=== PATIENT | male | born 1980 | race Caucasian/White ===

== ENCOUNTER 2017-06-28 09:13 | Inpatient (IN) | payer OTHER ==
[2017-06-28] MEDS ORDERED: CA CHLORIDE 10% 10 ML SYRINGE (11:17)
[2017-06-28] MEDS ORDERED: AL HYDROX/MG HYDROX/SIMETH 30 ML CUP PO (12:30)
[2017-06-28] MEDS ORDERED: DIPHENHYDRAMINE 50 MG INJ IV (12:30)
[2017-06-28] MEDS ORDERED: ZOLPIDEM 5 MG TAB PO (12:30)
[2017-06-28] MEDS ORDERED: ONDANSETRON 4 MG INJ IV (12:30)
[2017-06-28] MEDS ORDERED: NALOXONE (0.4 MG/ML) INJ IV (12:30)
[2017-06-28] MEDS ORDERED: BISACODYL 10 MG SUPP PR (12:30)
[2017-06-28] MEDS ORDERED: PROPOFOL 20 ML (12:56)
[2017-06-28] MEDS ORDERED: ROCURONIUM 50 MG INJ ×2 (12:56→13:46)
[2017-06-28] MEDS ORDERED: GLYCOPYRROLATE 0.4 MG INJ ×3 (12:56→13:47)
[2017-06-28] MEDS ORDERED: SUCCINYLCHOLINE CHLORIDE 100 MG/5 ML SYG IV (12:56)
[2017-06-28] MEDS ORDERED: LIDOCAINE 2% (SDV) 5 ML INJ (12:56)
[2017-06-28] MEDS ORDERED: NEOSTIGMINE 3 MG/3 ML SYRINGE ×2 (12:56→13:47)
[2017-06-28] MEDS ORDERED: MEPERIDINE 100 MG INJ (12:57)
[2017-06-28] MEDS ORDERED: LABETALOL HCL 20MG INJ (13:30)
[2017-06-28] MEDS ORDERED: CEFAZOLIN 1 GM INJ (13:47)
[2017-06-28] MEDS: CEFAZOLIN 1 GM INJ (14:29)
[2017-06-28] MEDS: HEPARIN 1000 UNITS/ML 10 ML INJ ×2 (14:30→14:31)
[2017-06-28] MEDS: GELATIN SIZE 100 SPONGE (14:30)
[2017-06-28] MEDS: SURGIFOAM POWDER 1 GM KIT ×2 (14:30→16:42)
[2017-06-28] MEDS: THROMBIN 5000 UNIT VIAL ×2 (14:31→16:41)
[2017-06-28] MEDS ORDERED: ONDANSETRON 4 MG INJ (16:40)
[2017-06-28] MEDS ORDERED: METOCLOPRAMIDE 10 MG INJ (16:40)
[2017-06-28] MEDS: BUPIVACAINE 0.25%/EPI (SDV) 30 ML INJ (16:49)
[2017-06-28] MEDS: oxyCODONE 5 MG TAB PO ×3 (17:00→21:04)
[2017-06-28] MEDS ORDERED: FENTAnyl 50 MCG/ML VIAL (17:15)
[2017-06-28] MEDS ORDERED: METOCLOPRAMIDE 10 MG INJ IV (17:30)
[2017-06-28] MEDS ORDERED: MIDAZOLAM 1 MG/ML 2 ML INJ IV (17:30)
[2017-06-28] MEDS ORDERED: EPHEDrine SULFATE 50 MG/5 ML SYG IV (17:30)
[2017-06-28] MEDS ORDERED: OXYCODONE/ACETAMINOPHEN (5/325) TAB PO (17:30)
[2017-06-28] MEDS ORDERED: FENTAnyl 50 MCG/ML VIAL IV ×2 (17:30)
[2017-06-28] MEDS ORDERED: hydrALAzine 20 MG INJ IV (17:30)
[2017-06-28] MEDS ORDERED: LABETALOL HCL 20MG INJ IV (17:30)
[2017-06-28] MEDS ORDERED: HYDROmorphONE (0.2 MG/ML) 10ML SYG IV (17:30)
[2017-06-28] MEDS: HYDROmorphONE (0.2 MG/ML) 10ML SYG IV ×4 (17:33→19:22)
[2017-06-28] MEDS: HYDROmorphONE 0.2 MG/ML PCA IV (17:37)
[2017-06-28] MEDS: FENTAnyl 50 MCG/ML VIAL IV ×2 (17:40→17:49)
[2017-06-28] MEDS: MEPERIDINE 25 MG INJ IV (19:02)
[2017-06-28] MEDS: ONDANSETRON 4 MG INJ IV (19:04)
[2017-06-28] MEDS: OXYCODONE/ACETAMINOPHEN (5/325) TAB PO (19:11)
[2017-06-28] MEDS: DIPHENHYDRAMINE 50 MG INJ IV (19:44)
[2017-06-28] MEDS: CEFAZOLIN 1 GM/50 ML (PMX) 50 ML IVPB ×2 (20:30→21:04)
[2017-06-28] MEDS: HYDROmorphONE 0.5 MG/0.5 ML SYG IV ×2 (20:56→23:48)
[2017-06-28] MEDS: D5W-0.45 NACL + KCL 20 MEQ 1,000 ML IV ×2 (20:59→22:10)
[2017-06-28] MEDS: PREGABALIN 100 MG CAP PO ×2 (21:00→21:03)
[2017-06-28] MEDS: METOPROLOL 50 MG TAB PO (21:03)
[2017-06-28] MEDS: DOCUSATE SODIUM 100 MG CAP PO (21:03)
[2017-06-28] MEDS: ATORVASTATIN 10 MG TAB PO (21:03)
[2017-06-28] MEDS: BACLOFEN 10 MG TAB PO (21:04)
[2017-06-29] MEDS: HYDROmorphONE 0.2 MG/ML PCA IV ×4 (00:29→21:52)
[2017-06-29] MEDS: PANTOPRAZOLE 40 MG INJ IV (05:21)
[2017-06-29] MEDS: CEFAZOLIN 1 GM/50 ML (PMX) 50 ML IVPB (05:21)
[2017-06-29] MEDS: HYDROmorphONE 0.5 MG/0.5 ML SYG IV (05:27)
[2017-06-29 05:57] LABS: ADD MAN DIFF? NO
[2017-06-29] MEDS ORDERED: PANTOPRAZOLE (EC) 40 MG TAB PO (06:00)
[2017-06-29 06:05] LABS: BASOPHIL # 0.1 10^3/ul (0.0-0.1); BASOPHILS % 0.7 % (0.0-2.0); EOSINOPHILS # 0.1 10^3/ul (0.0-0.5); HEMATOCRIT 35.5 % (42.0-52.0); HEMOGLOBIN 11.7 g/dl (14.0-18.0); LYMPHOCYTES # 1.9 10^3/ul (0.8-2.9); LYMPHOCYTES % 15.2 % (15.0-51.0); MEAN CORPUSCULAR HEMOGLOBIN 31.5 pg (29.0-33.0); MEAN CORPUSCULAR VOLUME 95.7 fl (82.0-101.0); MEAN PLATELET VOLUME 10.9 fl (7.4-10.4); MONOCYTE # 1.3 10^3/ul (0.3-0.9); MONOCYTES % 10.4 % (0.0-11.0); NEUTROPHIL # 9.1 10^3/ul (1.6-7.5); NEUTROPHILS % 72.4 % (39.0-77.0); PLATELET COUNT 225 10^3/UL (140-415); RED BLOOD COUNT 3.71 10^6/ul (4.70-6.10); RED CELL DISTRIBUTION WIDTH 12.7 % (11.5-14.5)
[2017-06-29 06:05] LABS: WHITE BLOOD COUNT 12.6 10^3/ul (4.8-10.8)
[2017-06-29 06:24] LABS: ANION GAP 15 (8-16); BLOOD UREA NITROGEN 6 mg/dl (7-20); CALCIUM 8.5 mg/dl (8.4-10.2); CARBON DIOXIDE 27 mmol/L (21-31); CHLORIDE 103 mmol/L (97-110); CREATININE 0.71 mg/dl (0.61-1.24); GLUCOSE 116 mg/dl (70-220); MAGNESIUM 1.4 mg/dl (1.7-2.5); POTASSIUM 3.8 mmol/L (3.5-5.1); SODIUM 141 mmol/L (135-144)
[2017-06-29] MEDS: ACETAMINOPHEN 325 MG TAB PO (06:55)
[2017-06-29] MEDS: D5W-0.45 NACL + KCL 20 MEQ 1,000 ML IV ×2 (08:23→17:45)
[2017-06-29] MEDS: oxyCODONE 5 MG TAB PO ×4 (08:24→20:39)
[2017-06-29] MEDS: PREGABALIN 100 MG CAP PO ×3 (08:24→20:36)
[2017-06-29] MEDS: ALLOPURINOL 100 MG TAB PO (08:25)
[2017-06-29] MEDS: BACLOFEN 10 MG TAB PO ×2 (08:25→20:38)
[2017-06-29] MEDS: METOPROLOL 50 MG TAB PO ×2 (08:25→20:38)
[2017-06-29] MEDS: DOCUSATE SODIUM 100 MG CAP PO ×2 (08:25→20:38)
[2017-06-29] MEDS: ATORVASTATIN 10 MG TAB PO (20:36)
[2017-06-29] MEDS: CEPASTAT LOZENGE MT (20:43)
[2017-06-30] MEDS: D5W-0.45 NACL + KCL 20 MEQ 1,000 ML IV ×2 (04:10→06:19)
[2017-06-30] MEDS: PANTOPRAZOLE 40 MG INJ IV (05:21)
[2017-06-30 05:29] LABS: WHITE BLOOD COUNT 18.4 10^3/ul (4.8-10.8)
[2017-06-30 05:29] LABS: ABNORMAL IP MESSAGE 1; ADD MAN DIFF? NO; BASOPHIL # 0.1 10^3/ul (0.0-0.1); BASOPHILS % 0.3 % (0.0-2.0); EOSINOPHILS % 0.2 % (0.0-7.0); HEMATOCRIT 35.4 % (42.0-52.0); HEMOGLOBIN 11.6 g/dl (14.0-18.0); LYMPHOCYTES # 1.4 10^3/ul (0.8-2.9); LYMPHOCYTES % 7.8 % (15.0-51.0); MEAN CORPUSCULAR HEMOGLOBIN 31.4 pg (29.0-33.0); MEAN CORPUSCULAR HGB CONC 32.8 g/dl (32.0-37.0); MEAN CORPUSCULAR VOLUME 95.9 fl (82.0-101.0); MONOCYTE # 1.5 10^3/ul (0.3-0.9); MONOCYTES % 8.2 % (0.0-11.0); NEUTROPHIL # 15.2 10^3/ul (1.6-7.5); PLATELET COUNT 228 10^3/UL (140-415); POSITIVE DIFF @See below; RED BLOOD COUNT 3.69 10^6/ul (4.70-6.10); RED CELL DISTRIBUTION WIDTH 12.7 % (11.5-14.5)
[2017-06-30 05:50] LABS: ANION GAP 16 (8-16); BLOOD UREA NITROGEN 4 mg/dl (7-20); CARBON DIOXIDE 26 mmol/L (21-31); CHLORIDE 101 mmol/L (97-110); CREATININE 0.58 mg/dl (0.61-1.24); GLUCOSE 152 mg/dl (70-220); MAGNESIUM 1.5 mg/dl (1.7-2.5); POTASSIUM 3.5 mmol/L (3.5-5.1); SODIUM 139 mmol/L (135-144)
[2017-06-30] MEDS: HYDROmorphONE 0.2 MG/ML PCA IV (06:21)
[2017-06-30] MEDS: OXYCODONE/ACETAMINOPHEN (10/325) TAB PO ×3 (09:29→15:22)
[2017-06-30] MEDS: DOCUSATE SODIUM 100 MG CAP PO (09:29)
[2017-06-30] MEDS: BACLOFEN 10 MG TAB PO (09:29)
[2017-06-30] MEDS: ALLOPURINOL 100 MG TAB PO (09:29)
[2017-06-30] MEDS: METOPROLOL 50 MG TAB PO (09:30)
[2017-06-30] MEDS: oxyCODONE 5 MG TAB PO ×3 (09:32→15:23)
[2017-06-30] MEDS: PREGABALIN 100 MG CAP PO ×2 (09:32→12:38)
[2017-06-30] MEDS ORDERED: OXYCODONE/ACETAMINOPHEN (10/325) TAB PO (10:00)
== END 2017-06-30 15:41 | disposition home or self-care (01) | DRG 454 ==
LOC: REC 09:13 → MS1 20:20
PROC: 0SG00A0 Fusion of Lumbar Vertebral Joint with Interbody Fusion Device, Anterior Approach, Anterior Column, Open Approach (ICD-10-PCS; principal; 2017-06-28 11:30)
PROC: 0SG00K1 Fusion of Lumbar Vertebral Joint with Nonautologous Tissue Substitute, Posterior Approach, Posterior Column, Open Approach (ICD-10-PCS; 2017-06-28 11:30)
PROC: 0ST20ZZ Resection of Lumbar Vertebral Disc, Open Approach (ICD-10-PCS; 2017-06-28 11:30)
PROC: 0ST40ZZ Resection of Lumbosacral Disc, Open Approach (ICD-10-PCS; 2017-06-28 11:30)
PROC: 0SG30K1 Fusion of Lumbosacral Joint with Nonautologous Tissue Substitute, Posterior Approach, Posterior Column, Open Approach (ICD-10-PCS; 2017-06-28 11:30)
PROC: 07DR3ZZ Extraction of Iliac Bone Marrow, Percutaneous Approach (ICD-10-PCS; 2017-06-28 11:30)
DX: M51.17 Intervertebral disc disorders with radiculopathy, lumbosacral region (principal); M48.57XA Collapsed vertebra, not elsewhere classified, lumbosacral region, initial encounter for fracture; M48.56XA Collapsed vertebra, not elsewhere classified, lumbar region, initial encounter for fracture; M48.061 Spinal stenosis, lumbar region without neurogenic claudication; M48.07 Spinal stenosis, lumbosacral region; M51.16 Intervertebral disc disorders with radiculopathy, lumbar region; K21.9 Gastro-esophageal reflux disease without esophagitis; M10.9 Gout, unspecified; I10 Essential (primary) hypertension; E78.5 Hyperlipidemia, unspecified; R14.1 Gas pain
CPT/HCPCS: 72020; 72114; 80048; 83735; 85025; 86850; 86900; 86901; 86920; 86999; 87086; 97116; 97163; 97530